=== PATIENT | female | born 1950 | race Caucasian/White ===

== ENCOUNTER → 2018-05-14 12:16 | Outpatient (CLI) | payer OTHER, SELFPAY ==
--- NOTE | 2018-05-14 12:18 | DI.RAD.S_ITS ---
PROCEDURE: XR FOOT LT MIN 3V INDICATIONS: 67 year-old female with left foot pain and swelling. TECHNIQUE: 3 views of the foot were acquired. COMPARISON: None. FINDINGS: Bones: No fractures or dislocations. No joint degeneration. No suspicious bony lesions. Soft tissues: No tibiotalar joint effusion. Achilles tendon appears normal. IMPRESSION: No imaging explanation for left foot pain. Dictated by: Francis Sinha M.D. on 05/14/2018 at 13:03 Approved by: Francis Sinha M.D. on 05/14/2018 at 13:03
== END ==
PROVIDERS: Family Provider Family Medicine; PCP Family Medicine; Visit Provider Internal Medicine
DX: M79.672 Pain in left foot (principal)
CPT/HCPCS: 73630

== ENCOUNTER → 2018-12-29 12:25 | Outpatient (CLI) | payer OTHER, SELFPAY ==
--- NOTE | 2018-12-29 12:28 | DI.RAD.S_ITS ---
PROCEDURE: XR HAND LT MIN 3V INDICATIONS: Pain in left hand and wrist TECHNIQUE: 3 views of the hand(s) acquired. COMPARISON: [facility], CR, XR WRIST LT MIN 3V, 12/29/2018, 12:28. FINDINGS: Bones: No fractures or dislocations. There is moderate degenerative osteoarthritis at the interphalangeal joints and base of the first metacarpal, without trauma. Carpal bones are normally aligned. No suspicious bony lesions. Soft tissues: No suspicious soft tissue calcifications. IMPRESSION: No trauma found. Moderate osteoarthritis. Dictated by: David Greenberg M.D. on 12/29/2018 at 13:41 Approved by: David Greenberg M.D. on 12/29/2018 at 13:42
--- NOTE | 2018-12-29 12:28 | DI.RAD.S_ITS ---
PROCEDURE: XR WRIST LT MIN 3V INDICATIONS: Pain in left hand and wrist TECHNIQUE: 4 views of the wrist were acquired. COMPARISON: None. FINDINGS: Bones: No fractures or dislocations. No suspicious bony lesions. Scaphoid view: No trauma Soft tissues: No suspicious soft tissue calcifications. IMPRESSION: No trauma found. Dictated by: David Greenberg M.D. on 12/29/2018 at 13:40 Approved by: David Greenberg M.D. on 12/29/2018 at 13:41
[2018-12-29 12:44] LABS: Add Manual Diff / Slide Review NO; Basophils Absolute Auto 100 /uL (0-100); Basophils Percent Auto 0.7 % (0-2); Eosinophils Absolute Auto 300 /uL (0-450); Eosinophils Percent Auto 2.8 % (2-4); Hematocrit 44.9 % (36-46); Hemoglobin 15.2 g/dL (12.0-16.0); Lymphocytes Absolute Auto 2000 /uL (1100-4500); Lymphocytes Percent Auto 16.7 % (25-40); Mean Corpuscular HGB Conc 33.8 % (30-36); Mean Corpuscular Hemoglobin 31.6 PG (26-34); Mean Corpuscular Volume 93.5 fL (80-100); Monocytes Absolute Auto 800 /uL (0-900); Monocytes Percent Auto 6.8 % (3-14); Neutrophils Absolute Auto 8600 /uL (1500-7000); Platelet Count 249 X10^3/uL (150-400); Red Cell Distribution Width 12.2 % (11.6-14.8); White Blood Cell Count 11.8 X10^3/uL (4.5-11.0)
[2018-12-29 12:58] LABS: Erythrocyte Sedimentation Rate 12 MM/HR (0-20)
[2018-12-29 13:32] LABS: C-Reactive Protein Quant 1.7 mg/dL (<1.0); Estimated Glomerular Filt Rate > 60.0 mL/min (>60); Uric Acid 6.7 mg/dL (2.5-6.2)
== END ==
PROVIDERS: Family Provider Family Medicine; PCP Family Medicine; Visit Provider Registered Nurse
DX: M25.532 Pain in left wrist (principal); M79.642 Pain in left hand; M19.042 Primary osteoarthritis, left hand; M25.432 Effusion, left wrist; M25.9 Joint disorder, unspecified; Z87.39 Personal history of other diseases of the musculoskeletal system and connective tissue
CPT/HCPCS: 36415; 73110; 73130; 82565; 84550; 85025; 85651; 86140

== ENCOUNTER → 2023-04-08 14:25 | Outpatient (CLI) | payer OTHER, SELFPAY ==
[2023-04-10 14:51] LABS: Candida species Negative (Negative); Gardnerella vaginalis Negative (Negative); Trichomoas vaginalis Negative (Negative)
== END ==
PROVIDERS: Family Provider Family Medicine; PCP Family Medicine; Visit Provider Physician Assistant Medical
DX: N89.8 Other specified noninflammatory disorders of vagina (principal)
CPT/HCPCS: 87480; 87510; 87660

== ENCOUNTER → 2024-02-10 11:18 | Outpatient (CLI) | payer OTHER, SELFPAY ==
[2024-02-11 14:47] LABS: Candida species Negative (Negative); Gardnerella vaginalis Positive (Negative); Trichomoas vaginalis Negative (Negative)
== END ==
PROVIDERS: Family Provider Family Medicine; PCP Family Medicine; Visit Provider Physician Assistant Medical
DX: N89.8 Other specified noninflammatory disorders of vagina (principal)
CPT/HCPCS: 87480; 87510; 87660

== ENCOUNTER → 2025-06-25 10:46 | Outpatient (CLI) | payer OTHER, SELFPAY ==
[2025-06-25 11:57] LABS: Add Manual Diff / Slide Review NO; Hematocrit 43.3 % (36-46); Hemoglobin 14.8 g/dL (12.0-16.0); Lymphocytes Absolute Auto 2100 /uL (1100-4500); Mean Corpuscular HGB Conc 34.1 % (30-36); Mean Corpuscular Hemoglobin 31.6 PG (26-34); Mean Corpuscular Volume 92.5 fL (80-100); Platelet Count 257 X10^3/uL (150-400)
[2025-06-25 12:16] LABS: Alanine Aminotransferase 15 IU/L (<35); Albumin 4.3 g/dL (3.5-5.0); Albumin Globulin Ratio 1.3 (1.0-2.8); Alkaline Phosphatase 108 U/L (38-126); Blood Urea Nitrogen 12 mg/dL (7-17); Calcium 9.0 mg/dL (8.4-10.2); Carbon Dioxide 28 mmol/L (22-32); Chloride 104 mmol/L (98-107); Estimated Glomerular Filt Rate > 60 mL/min (>60); Globulin 3.3 g/dL (1.7-4.1); Glucose 89 mg/dL (70-99); HEMOLYSIS < 15 (0-50); Potassium 4.1 mmol/L (3.4-5.1); Sodium 139 mmol/L (137-145); Total Protein 7.6 g/dL (6.3-8.2)
[2025-06-25 12:48] LABS: TSH w/ Reflex to FT4 2.42 uIU/mL (0.47-4.68)
== END ==
PROVIDERS: PCP Family Medicine; Referring Provider Family Medicine; Visit Provider Family Medicine
DX: Z00.00 Encounter for general adult medical examination without abnormal findings (principal); I10 Essential (primary) hypertension; D72.829 Elevated white blood cell count, unspecified
CPT/HCPCS: 36415; 80053; 82043; 82570; 84443; 85025

== ENCOUNTER 2025-11-20 17:27 | Emergency (ER) | payer OTHER, SELFPAY ==
[2025-11-20 17:33] VITALS: BP 132/101; PULSE 75; RESP 16; TEMP 37.1; O2SAT 97; BMI 25.7
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
[2025-11-20] MEDS: NAPROXEN 250 MG TABLET 500 MG PO (17:46)
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
[2025-11-20 19:39] VITALS: BP 130/80; PULSE 75; RESP 18; O2SAT 98
== END 2025-11-20 19:41 | disposition home or self-care (01) ==
PROVIDERS: Emergency Provider Physician Assistant; PCP Family Medicine
DX: S82.54XA Nondisplaced fracture of medial malleolus of right tibia, initial encounter for closed fracture (principal); V09.9XXA Pedestrian injured in unspecified transport accident, initial encounter
CPT/HCPCS: 29505; 29515; 73610; 73630; 99283